=== PATIENT | female | born 1995 | race Caucasian/White ===

== ENCOUNTER 2022-11-27 06:28 | Inpatient (IN) ==
[2022-11-27] MEDS ORDERED: NS 100 ML IV 100 ML ONE (06:42)
[2022-11-27] MEDS ORDERED: LR 1,000 ML IV 1,000 ML IV ONE ×2 (06:42→08:16)
[2022-11-27] MEDS ORDERED: ANCEF VIAL 1 GRAM ONE (06:42)
[2022-11-27] MEDS ORDERED: ANCEF VIAL 1 GRAM IVP ONE (06:45)
[2022-11-27] MEDS ORDERED: PITOCIN IVP ONE (06:45)
[2022-11-27] MEDS ORDERED: D5 1/2 NS 1,000 ML 1,000 ML IV SCH (07:00)
[2022-11-27] MEDS ORDERED: BACTROBAN TOPICAL OINT ONE (07:03)
[2022-11-27] MEDS ORDERED: PRECEDEX INJ VIAL IVP ONE (07:13)
[2022-11-27] MEDS ORDERED: NEO-SYNEPHRINE INJ ONE (07:13)
[2022-11-27] MEDS ORDERED: DILAUDID INJ ONE (07:14)
[2022-11-27] MEDS ORDERED: ZOFRAN INJ 4 MG VIAL ONE ×2 (07:14→07:23)
[2022-11-27] MEDS ORDERED: MARCAINE SPINAL ONE (07:14)
[2022-11-27] MEDS ORDERED: PEPCID 20 MG VIAL ONE ×2 (07:14→07:23)
[2022-11-27 07:16] LABS: BASOPHILS # (AUTO) 0.1 X10^3/uL (0.0-0.1); BASOPHILS % (AUTO) 1.2 % (0.2-1.0); EOSINOPHILS % (AUTO) 0.5 % (0.9-2.9); HEMATOCRIT 37.4 % (36.0-47.0); HEMOGLOBIN 12.8 g/dL (12.0-16.0); LYMPHOCYTES # (AUTO) 2.5 X10^3/uL (1.3-2.9); LYMPHOCYTES % (AUTO) 27.9 % (21.0-51.0); MEAN CORPUSCULAR HEMOGLOBIN 30.3 pg (27.0-34.0); MEAN CORPUSCULAR HGB CONC 34.3 g/dL (33.0-35.0); MEAN CORPUSCULAR VOLUME 88.2 fL (80.0-100.0); MEAN PLATELET VOLUME 9.9 fL (7.4-11.0); MONOCYTES # (AUTO) 0.5 x10^3/uL (0.3-0.8); MONOCYTES % (AUTO) 5.7 % (0.0-13.0); NEUTROPHILS # (AUTO) 5.7 x10^3/uL (2.2-4.8); NEUTROPHILS % (AUTO) 64.7 % (42.0-75.0); RED BLOOD COUNT 4.24 X10^6/uL (3.5-5.4); RED CELL DISTRIBUTION WIDTH 13.4 % (11.6-16.5); WHITE BLOOD COUNT 8.9 X10^3/uL (3.6-10.0)
[2022-11-27 07:17] LABS: BILIRUBIN,URINE NEGATIVE (NEGATIVE); BLOOD/HEMOGLOBIN,URINE NEGATIVE (NEGATIVE); GLUCOSE, URINE NEGATIVE (NEGATIVE); KETONES,URINE NEGATIVE (NEGATIVE); LEUKOCYTE ESTERASE ,URINE 1+ (NEGATIVE); NITRITES,URINE NEGATIVE (NEGATIVE); PROTEIN,URINE 2+ (NEGATIVE); UROBILINOGEN,URINE NORMAL (NORMAL)
[2022-11-27 07:25] LABS: APPEARANCE,URINE CLEAR (CLEAR); BACTERIA,URINE 1+ /HPF (NEGATIVE); COLOR,URINE DARK YELLOW (YELLOW); RBC,URINE NONE SEEN /HPF (0-3); RENAL EPITHELIAL CELLS,URINE FEW /HPF (NEGATIVE); SQUAMOUS EPITHELIAL CELL,UR MODERATE /HPF (NEGATIVE)
[2022-11-27 07:25] LABS: BLOOD UREA NITROGEN 8 mg/dL (7-18); CALCIUM 8.9 mg/dL (8.5-10.1); CARBON DIOXIDE 20.9 mmol/L (21-32); CHLORIDE 104 mmol/L (98-107); CREATININE 0.63 mg/dL (0.55-1.02); SODIUM 136 mmol/L (136-145); eGFR NON BLACK RACES > 60 (>60)
[2022-11-27] MEDS ORDERED: EPHEDRINE SULFATE INJ ONE (08:09)
[2022-11-27] MEDS ORDERED: ROBINUL ONE (08:10)
[2022-11-27] MEDS ORDERED: PITOCIN ONE (08:17)
[2022-11-27] MEDS ORDERED: TORADOL 30 MG VIAL ONE (08:44)
[2022-11-27] MEDS ORDERED: BARHEMSYS INJ IVP PRN (08:56)
[2022-11-27] MEDS ORDERED: BENADRYL INJ 50 MG VIAL IVP PRN ×2 (08:56→08:57)
[2022-11-27] MEDS ORDERED: REGLAN INJ 10 MG VIAL IVP PRN (08:56)
[2022-11-27] MEDS ORDERED: DILAUDID INJ IVP PRN (08:56)
[2022-11-27] MEDS ORDERED: ZOFRAN INJ 4 MG VIAL IVP PRN ×2 (08:56→08:57)
[2022-11-27] MEDS ORDERED: NARCAN INJ IVP PRN (08:57)
[2022-11-27] MEDS ORDERED: TORADOL 30 MG VIAL IVP PRN (08:57)
[2022-11-27] MEDS ORDERED: MYLICON TAB 80 MG CHEW PO PRN (09:30)
[2022-11-27] MEDS ORDERED: MOTRIN TAB 800 MG PO PRN (09:30)
[2022-11-27] MEDS ORDERED: D5 1/2 NS 1,000 ML 1,000 ML with PITOCIN 20 UNITS IV SCH ×2 (09:30)
[2022-11-27] MEDS: PRENATAL PLUS PO SCH (11:20)
[2022-11-27] MEDS: MILK OF MAGNESIA PO SCH (11:20)
[2022-11-27] MEDS: D5 1/2 NS 1,000 ML 1,000 ML with PITOCIN 20 UNITS IV SCH ×4 (12:59→21:23)
[2022-11-27] MEDS ORDERED: ONDANSETRON ODT PO ONE (13:15)
[2022-11-27] MEDS ORDERED: STERILE WATER IRRIGATION IR ONE (14:16)
[2022-11-27] MEDS: COLACE CAP 100 MG PO SCH (21:17)
[2022-11-27] MEDS: D5 1/2 NS 1,000 ML 1,000 ML IV SCH (21:44)
[2022-11-28 05:39] LABS: HEMATOCRIT 29.2 % (36.0-47.0)
[2022-11-28 05:45] LABS: HEMOGLOBIN 9.9 g/dL (12.0-16.0)
[2022-11-28] MEDS: D5 1/2 NS 1,000 ML 1,000 ML IV SCH ×3 (06:24→22:03)
[2022-11-28] MEDS: MILK OF MAGNESIA PO SCH (08:12)
[2022-11-28] MEDS: PRENATAL PLUS PO SCH (08:12)
[2022-11-28] MEDS: PERCOCET TAB 5/325 MG PO PRN ×2 (08:23→17:23)
[2022-11-28] MEDS: COLACE CAP 100 MG PO SCH (21:50)
[2022-11-29] MEDS: D5 1/2 NS 1,000 ML 1,000 ML IV SCH (06:00)
[2022-11-29] MEDS: PRENATAL PLUS PO SCH (09:05)
[2022-11-29] MEDS: MILK OF MAGNESIA PO SCH (09:05)
[2022-11-29] MEDS ORDERED: ADACEL or BOOSTRIX TDaP VACCINE IM ONE (09:20)
[2022-11-29 12:03] VITALS: BP 101/64
== END 2022-11-29 11:40 | disposition home or self-care (01) | DRG 787 ==
LOC: LD 06:28 → MED/SURG 10:36
PROVIDERS: ADMIT Obstetrics & Gynecology Obstetrics; ATTEND Obstetrics & Gynecology Obstetrics
DX: A56.8 Sexually transmitted chlamydial infection of other sites; O98.82 Other maternal infectious and parasitic diseases complicating childbirth; Z3A.39 39 weeks gestation of pregnancy; O34.211 Maternal care for low transverse scar from previous cesarean delivery; Z37.0 Single live birth; B95.1 Streptococcus, group B, as the cause of diseases classified elsewhere; O98.313 Other infections with a predominantly sexual mode of transmission complicating pregnancy, third trimester